=== PATIENT | male | born 1985 | race Caucasian/White ===

== ENCOUNTER 2022-01-18 16:28 | Emergency (ER) | payer SELFPAY ==
[~2022-01-18] VITALS: Ht 177.8 cm; Wt 90.7 kg
[2022-01-18 16:58] VITALS: BP 124/70
[2022-01-18] MEDS ORDERED: IBUPROFEN 800 MG TAB PO ONE (19:25)
[2022-01-18] MEDS ORDERED: IBUP-2213 PO (19:44)
--- NOTE | 2022-01-18 20:00 | NUR ---
AIRCAST APPLIED TO L ANKLE. CMS CHECKED BEFORE/AFTER.
== END 2022-01-18 20:03 | disposition home or self-care (01) ==
LOC: MED 16:28
DX: S93.402A Sprain of unspecified ligament of left ankle, initial encounter (principal); R03.0 Elevated blood-pressure reading, without diagnosis of hypertension; Z79.899 Other long term (current) drug therapy; W18.2XXA Fall in (into) shower or empty bathtub, initial encounter; Y93.89 Activity, other specified; Y92.89 Other specified places as the place of occurrence of the external cause; Y99.8 Other external cause status
CPT/HCPCS: 73610; 99283

== ENCOUNTER 2023-06-04 14:48 | Emergency (ER) | payer BC ==
[~2023-06-04] VITALS: Ht 167.6 cm; Wt 108.9 kg
[~2023-06-04 14:48] MED LIST: IBUP-2213 PO
[2023-06-04 14:58] VITALS: BP 155/103; PULSE 60; RESP 18; TEMP 98.5; O2SAT 97
[2023-06-04] MEDS ORDERED: NAPR-337 PO (16:12)
[2023-06-04 16:21] VITALS: BP 136/72; PULSE 66; RESP 16; TEMP 98; O2SAT 99
== END 2023-06-04 16:21 | disposition home or self-care (01) ==
LOC: MED 14:48
DX: M17.12 Unilateral primary osteoarthritis, left knee (principal); Z79.899 Other long term (current) drug therapy
CPT/HCPCS: 73562; 99283